=== PATIENT | male | born 1980 | race Two or more races ===

== ENCOUNTER 2019-04-11 06:18 | Emergency (ER) | payer SELFPAY ==
[~2019-04-11] VITALS: Ht 165.1 cm; Wt 94.3 kg
[2019-04-11 06:22] VITALS: BP 123/89
[2019-04-11] MEDS ORDERED: Lidocaine 1% 10mg/ml/EPI 0.01mg/ml 20ml INJ ONE (06:45)
--- NOTE | 2019-04-11 06:51 | Emergency Room Report ---
History of Present Illness General Chief Complaint: Laceration Source: Patient Present Illness HPI Patient presents with complaints of laceration to the left upper thumb patient was putting away material for his work into the back of his truck When he was cut by a metal object Denies any chest pain denies any wrist pain denies any other trauma Patient has some discomfort to the bottom of the thumb as well Pain is worse with movement initially Patient reports that the area was bleeding significantly however it has improved with some pressure Allergies: Coded Allergies: No Known Allergies (Unverified , 04/11/19) Patient History Past Medical History: see triage record Reviewed Nursing Documentation: PMH: Agreed; PSxH: Agreed Nursing Documentation-PMH Past Medical History: No Stated History Review of Systems All Other Systems: negative except mentioned in HPI Physical Exam Vital Signs Date Time Temp Pulse Resp B/P (MAP) Pulse Ox O2 Delivery O2 Flow Rate FiO2 04/11/19 06:22 97.9 89 16 123/89 (100) 96 Room Air Sp02 EP Interpretation: reviewed, normal General Appearance: well appearing, no apparent distress Head: normocephalic, atraumatic Eyes: bilateral eye PERRL, bilateral eye EOMI ENT: hearing grossly normal, normal pharynx Neck: supple Respiratory: chest non-tender, lungs clear Cardiovascular #1: normal peripheral pulses Gastrointestinal: non tender, soft, no mass Musculoskeletal: other - Approximately 1 cm laceration over the proximal left thumb, area is able to be well approximated, small hematoma palmar aspect of the left thumb. full flexion extension in tact on the thumb Neurologic: alert, oriented x3, responsive Skin: other - As above Lymphatic: no adenopathy Procedures Splinting Splinting : Consent: Verbal Location: Left thumb Pre-Made Type: metal Splint: Thumb finger splint Pre-Proc Neuro Vasc Exam: normal Post-Proc Neuro Vasc Exam: normal Patient Tolerated: Well Complications: None Laceration/Wound Repair Laceration/Wound Repair : Consent: Verbal Wound Location: upper extremity Wound's Depth, Shape: linear Wound Length (cm): 1 Wound Explored: clean Irrigated w/ Saline (ccs): 200 Betadine Prep?: Yes Anesthesia: Lidocaine w/ Epi Volume Anesthetic (ccs): 2 Wound Debrided: minimal Wound Repaired With: sutures Suture Size/Type: 5:0 Number of Sutures: 4 Layer Closure?: No Splint Applied?: Yes Patient Tolerated: Well Complications: None Medical Decision Making Diagnostic Impression: Primary Impression: Laceration ER Course Patient has approximately 1 cm laceration as noted above patient reports last tetanus shot was about 2 years ago Area cleansed and prepped and laceration sutured as noted in the procedural note patient tolerated the procedure well and is stable for close outpatient follow-up Last Vital Signs Date Time Temp Pulse Resp B/P (MAP) Pulse Ox O2 Delivery O2 Flow Rate FiO2 04/11/19 06:22 97.9 89 16 123/89 (100) 96 Room Air Status: improved Disposition: HOME, SELF-CARE Condition: Improved Referrals: NOT CHOSEN IPA/MD,REFERRING (PCP) Additional Instructions: Patient is provided with the discharge instructions notified to follow up with primary doctor in the next 2-3 days otherwise return to the er with any worsening symptoms. Please note that this report is being documented using [employer] technology. This can lead to erroneous entry secondary to incorrect interpretation by the dictating instrument. Jose Cummings DO Apr 11, 2019 06:51
[2019-04-11] MEDS ORDERED: Bacitracin Oint UD TOPIC ONE ×2 (07:14→07:15)
[2019-04-11 07:16] VITALS: BP 125/91
--- NOTE | 2019-04-11 07:16 | NUR ---
ED Nurse Note: Wound dressed by EMT, bacitracin applied. Pt tolerated well. Pt is cleared to be discharged at this time. D/C instructions given, pt verbalized understanding w/o anymore questions. AOOx4, vital signs stable. Pt is able to ambulate out with steady gait with all belongings.
== END 2019-04-11 07:16 | disposition home or self-care (01) ==
LOC: EMR 06:39
DX: S61.012A Laceration without foreign body of left thumb without damage to nail, initial encounter (principal); W45.8XXA Other foreign body or object entering through skin, initial encounter; Y93.89 Activity, other specified; Y92.812 Truck as the place of occurrence of the external cause
CPT/HCPCS: 29130; 99282